=== PATIENT | female | born 1985 | race African-American/Black ===

== ENCOUNTER 2018-10-21 13:41 | Emergency (ER) | payer OTHER ==
[2018-10-21 14:28] LABS: #Basophils 0.1 thou/uL (0.0-0.2); #Monocytes 0.5 thou/uL (0.11-0.59); %Basophils 0.6 % (0.0-1.0); %Eosinophils 0.2 % (0.0-10.0); %Lymphocytes 35.4 % (21.0-51.0); %Monocytes 5.3 % (0.0-10.0); %Neutrophils 58.5 % (42.0-75.0); Hemoglobin 13.5 g/dL (12.0-16.0); Mean Corpuscular HGB CONC 34.4 g/dL (32.0-36.0); Mean Corpuscular Volume 84.3 fL (78.0-98.0); Mean Platelet Volume 7.5 fL (7.4-10.4); Platelet Count 291 thou/uL (130-400); RBC Distribution Width 12.3 % (11.5-14.5); Red Blood Cell (RBC) Count 4.66 mill/uL (4.20-5.40); White Blood Cell (WBC) Count 8.5 thou/uL (4.8-10.8)
[2018-10-21] MEDS ORDERED: Morphine 4 MG/ML VIAL ONE (14:37)
[2018-10-21] MEDS ORDERED: Ondansetron PF 4 MG/2 ML Vial ONE (14:37)
[2018-10-21 14:47] LABS: ALT (SGPT) 17 U/L (8-55); AST (SGOT) 17 U/L (5-34); Albumin 4.6 g/dL (3.5-5.0); Alkaline Phosphatase 63 U/L (40-150); Anion Gap 13 mmol/L (10-20); BUN (Urea Nitrogen) 12 mg/dL (7.0-18.7); Bilirubin, Total 0.5 mg/dL (0.2-1.2); Calc. Creatinine Clearance 0 mL/min (70-130); Calcium 9.5 mg/dL (7.8-10.44); Carbon Dioxide 21 mmol/L (22-29); Chloride 108 mmol/L (98-107); Estimated GFR-MDRD 83; Globulin 2.9 g/dL (2.4-3.5); Glucose 127 mg/dL (70-105); Lipase 15 U/L (8-78); Potassium 3.2 mmol/L (3.5-5.1); Protein, Total 7.5 g/dL (6.0-8.3); Sodium 139 mmol/L (136-145)
[2018-10-21 15:45] LABS: Bilirubin Negative (Negative); Blood, Urine Large (Negative); Clarity CLOUDY (Clear); Glucose, Urine (Dipstick) Negative (Negative); Leukocyte Negative (Negative); Nitrite Negative (Negative); Protein, Urine (Dipstick) Trace mg/dL (Neg-Trace); Specific Gravity, Urine 1.019 (1.002-1.036)
[2018-10-21 15:46] LABS: Bacteria/HPF None Seen HPF (None Seen); Hyaline Casts/LPF 4-6 HYALINE CAST LPF (0-3 Hyaline); Pathc Cast-AUWi Flag 0.68 (0-2.49); RBC/HPF GREATER THAN 50-TNTC HPF (0-3)
[2018-10-21 15:47] LABS: Pregnancy Test - Urine (BHCG) Negative (Negative); Pregu Control Background? CLEAR/WHITE (CLR/WHITE); Pregu Control Bar Appear? YES (CONTROL BAR); Specific Gravity 1.019 (1.002-1.036)
[2018-10-21 15:55] LABS: Renal Epithelial None Seen HPF (0-3); Transitional Epithelial NONE SEEN HPF (0-3)
--- NOTE | 2018-10-21 16:13 | CT ---
FCT Abdomen Pelvis WO Con History:Abdominal pain nausea and vomiting Comparison: None Findings: The lung bases are clear. The liver, spleen, pancreas and gallbladder regions appear unremarkable. Right and left adrenal glands are normal in appearance. There are 2 punctate nonobstructing lower nate e left renal calculi there is minimal dilatation of the right collecting system the right ureter is s lightly dilated and there is a calculus measuring 2 to 3 mm in size at the level the right ureteroves ical junction. There is no significant periaortic or mesenteric adenopathy. Colonic diverticulosis is noted. CT of pelvis performed without contrast enhancement the appendix region appears unremarkable no free fluid, adenopathy or mass. Impression: 1. Punctate nonobstructing left renal calculi. 2. Mild hydronephrosis and hydroureter related to a 2 to 3 mm right ureterovesical junction calculus. 3. Colonic diverticulosis.
== END 2018-10-21 16:49 | disposition home or self-care (01) ==
LOC: ERS 13:41
DX: N13.2 Hydronephrosis with renal and ureteral calculous obstruction (principal); F17.200 Nicotine dependence, unspecified, uncomplicated
CPT/HCPCS: 74176; 80053; 81003; 81015; 81025; 83690; 85025; 96374; 96375; J2270; J2405